=== PATIENT | male | born 1930 | race Caucasian/White ===

== ENCOUNTER 2016-10-02 11:07 | Emergency (ER) | payer MEDICARE, OTHER ==
[2016-10-02 13:07] VITALS: BP 176/60
--- NOTE | 2016-10-02 13:22 | UC ---
Skin Complaint HPI - HPI Summary HPI Summary: This is an 86 yo male with HTN who presented with c/o rash. Rash was 1st noted on his R forearm ~3d ago. He states it itches, he has been applying a cream without improvement. He notes he was weedwacking a couple of days ago just prior to the rash starting. His HR was noted to be low at the time of triage. Patient reports that he is completely asx. No dizziness, CP, SOB. He just returned from a 3000 mile roadtrip and is active outside without any symptoms. He is prescribed metoprolol. He states he has a f/u with his PCP next week. <Herbert Atwood - Last Filed: 10/02/16 13:25> <Esthela Aguayo - Last Filed: 10/02/16 20:42> - History of Current Complaint Chief Complaint: UCRash Stated Complaint: RASH - Allergy/Home Medications Allergies/Adverse Reactions: Allergies Allergy/AdvReac Type Severity Reaction Status Date / Time Iodine Allergy Swelling Verified 10/02/16 11:43 Of Face,Lips,& Throat Latex Allergy RED Verified 10/02/16 11:43 IRRITATION WITH LATEX BANDAGES Home Medications: Home Medications Aspirin TAB* [Aspirin 325 MG TAB*] 1 tab PO BEDTIME 10/02/16 [History Confirmed 10/02/16] Review of Systems Constitutional: Negative Skin: Rash Eyes: Negative ENT: Negative Respiratory: Negative Cardiovascular: Negative Gastrointestinal: Negative Genitourinary: Negative Motor: Negative Neurovascular: Negative Musculoskeletal: Negative Neurological: Negative Psychological: Negative All Other Systems Reviewed And Are Negative: Yes <Herbert Atwood - Last Filed: 10/02/16 13:25> PMH/Surg Hx/FS Hx/Imm Hx Cardiovascular History: Hypertension - Surgical History Surgical History: Yes Surgery Procedure, Year, and Place: Left Knee Total Replacement 2009. tonsilectomy. squamous cell removal - Family History Known Family History: Positive: None - Social History Alcohol Use: None Substance Use Type: None Smoking Status (MU): Never Smoked Tobacco Have You Smoked in the Last Year: No - Immunization History Most Recent Influenza Vaccination: FALL 2014 Most Recent Tetanus Shot: UP TO DATE Most Recent Pneumonia Vaccination: 2013 <Herbert Atwood - Last Filed: 10/02/16 13:25> Physical Exam Triage Information Reviewed: Yes Appearance: Well-Appearing Vital Signs: Initial Vital Signs Temp 98.2 F 10/02/16 11:44 Pulse 42 10/02/16 11:44 Resp 18 10/02/16 11:44 BP 142/65 10/02/16 11:44 Pulse Ox 99 10/02/16 11:44 Vital Signs Reviewed: Yes ENT Exam: Normal Neck exam: Normal Neck: Positive: Supple, Nontender Respiratory: Positive: Lungs clear. Negative: Crackles, Rhonchi, Wheezing Cardiovascular: Positive: RRR, No Murmur Abdominal Exam: Normal Musculoskeletal: Positive: Strength Intact Neurological: Positive: Alert Psychological: Positive: Normal Response To Family Skin: Positive: Other - papular erythematous rash over the volar aspect of the R forearm and a small amount on the L forearm. Few vesicles noted on the R arm <Herbert Atwood - Last Filed: 10/02/16 13:25> Vital Signs: Initial Vital Signs Temp 98.2 F 10/02/16 11:44 Pulse 42 10/02/16 11:44 Resp 18 10/02/16 11:44 BP 142/65 10/02/16 11:44 Pulse Ox 99 10/02/16 11:44 <Esthela Aguayo - Last Filed: 10/02/16 20:42> Diagnostics - Laboratory Diagnostic Studies Completed/Ordered: EKG - sinus balaji with slight sinus arrythmia, rate 55 bpm <Herbert Atwood - Last Filed: 10/02/16 13:25> Course/Dx - Course Course Of Treatment: This is an 86 yo gentleman who presents with c/o rash. Rash and history appear consistent with a contact dermatitis, likely a plant contact. He was noted to be bradycardic on initial exam, but asx. EKG showed sinus balaji without a block and HR of 55. Repeat vitals demonstrated improvement. - Differential Diagnoses - Skin Complaint Differential Diagnoses: Drug Rash, Eczema, Impetigo - Diagnoses Provider Diagnoses: 1. Contact dermatitis. 2. Bradycardia - likely iatrogenic, encouraged him to review with his PCP at his upcoming appointment <Herbert Atwood - Last Filed: 10/02/16 13:25> Discharge <Herbert Atwood - Last Filed: 10/02/16 13:25> <Esthela Aguayo - Last Filed: 10/02/16 20:42> - Discharge Plan Condition: Stable Disposition: HOME Prescriptions: Triamcinolone 0.1% CREAM(NF) [Kenalog Cream 0.1%(NF)] 1 applic TOPICAL BID #1 tube Patient Education Materials: Contact Dermatitis (ED) Referrals: Osmin Ritter MD [Primary Care Provider] - 1 Week Additional Instructions: Instructions: 1. Please apply cream twice daily as directed 2. Follow up with your PCP next week as scheduled, please mention your low heart rate Attestation Statement User Type: Provider - I was available for consult. This patient was seen by the [facility]. The patient was not presented to, seen by, or examined by me. -Benjamin <Esthela Aguayo - Last Filed: 10/02/16 20:42>
== END 2016-10-02 13:27 | disposition home or self-care (01) ==
LOC: UCEAST 11:07
DX: L25.9 Unspecified contact dermatitis, unspecified cause (principal); I10 Essential (primary) hypertension; Z88.8 Allergy status to other drugs, medicaments and biological substances; Z91.040 Latex allergy status
CPT/HCPCS: 93005; 99212; G0463